=== PATIENT | male | born 1980 | race Caucasian/White ===

== ENCOUNTER 2023-03-17 19:20 | Emergency (ER) | payer MEDICAID ==
[~2023-03-17] VITALS: Ht 170.2 cm; Wt 68.0 kg
[2023-03-17] MEDS ORDERED: LIDOCAINE 1%-EPI 1:100,000 20 ML VIAL ONE (22:00)
[2023-03-17] MEDS ORDERED: LIDOCAINE 1%-EPI 1:200,000 SDV 10 ML VIAL IJ ONE (22:00)
[2023-03-17] MEDS ORDERED: TDAP [DIPH/PERTUSSIS/TET] 0.5 ML VIAL IM ONE ×2 (22:00→22:29)
[2023-03-17] MEDS ORDERED: IBUP800T54 PO (22:59)
[2023-03-17 23:03] VITALS: BP 112/80; TEMP 98.2; O2SAT 98
[2023-03-17] MEDS ORDERED: IBUPROFEN 400 MG TABLET ONE (23:13)
[2023-03-17] MEDS ORDERED: IBUPROFEN 400 MG TABLET PO ONE (23:30)
== END 2023-03-17 23:04 | disposition home or self-care (01) ==
LOC: ER 19:25
DX: S51.812A Laceration without foreign body of left forearm, initial encounter (principal); S40.212A Abrasion of left shoulder, initial encounter; V87.8XXA Person injured in other specified noncollision transport accidents involving motor vehicle (traffic), initial encounter; Y93.89 Activity, other specified; Y92.89 Other specified places as the place of occurrence of the external cause; Y99.8 Other external cause status
CPT/HCPCS: 12002; 73030; 73080; 73503; 90471; 90715; 99284; J3490; 73502

== ENCOUNTER 2023-03-27 10:15 | Emergency (ER) | payer MEDICAID ==
[~2023-03-27] VITALS: Ht 170.2 cm; Wt 71.2 kg
[~2023-03-27 10:15] MED LIST: IBUP800T54 PO
[2023-03-27 10:21] VITALS: BP 127/64; TEMP 98.4; O2SAT 100
== END 2023-03-27 10:41 | disposition home or self-care (01) ==
LOC: ER 10:17
DX: S51.812D Laceration without foreign body of left forearm, subsequent encounter (principal); Z79.899 Other long term (current) drug therapy; V98.8XXD Other specified transport accidents, subsequent encounter

== ENCOUNTER 2023-07-20 18:41 | Emergency (ER) | payer MEDICAID ==
[~2023-07-20] VITALS: Ht 170.2 cm; Wt 70.3 kg
[2023-07-20 18:53] VITALS: BP 136/86; TEMP 98.2; O2SAT 99
[2023-07-20] MEDS ORDERED: dexAMETHasone 1 MG TABLET PO ONE (19:30)
[2023-07-20] MEDS ORDERED: dexAMETHasone 4 MG TABLET ONE (19:36)
[2023-07-20] MEDS ORDERED: dexAMETHasone 1 MG TABLET ONE (19:36)
[2023-07-20] MEDS: dexAMETHasone 1 MG TABLET PO ONE (19:48)
[2023-07-20] MEDS ORDERED: DEXA6TAB6 PO (19:55)
== END 2023-07-20 20:05 | disposition home or self-care (01) ==
LOC: ER 18:47
DX: R21 Rash and other nonspecific skin eruption (principal); Z79.899 Other long term (current) drug therapy
CPT/HCPCS: 99283; J8540 ×2

== ENCOUNTER 2024-07-12 22:32 | Emergency (ER) | payer MEDICAID ==
[~2024-07-12] VITALS: Ht 175.3 cm; Wt 81.2 kg
[~2024-07-12 22:32] MED LIST changes: +DEXA6TAB6 PO
[2024-07-12 23:34] LABS: BASOPHILS % (AUTO) 0.6 % (0.0-2.0); EOSINOPHILS # (AUTO) 0.1 K/uL (0.0-0.7); EOSINOPHILS % (AUTO) 0.7 % (0.0-6.0); HEMATOCRIT 45 % (39-51); LYMPHOCYTES # (AUTO) 2.9 K/uL (0.8-4.8); LYMPHOCYTES % (AUTO) 35.8 % (20.0-44.0); MEAN CORPUSCULAR HEMOGLOBIN 28 PG (26.0-33.0); MEAN CORPUSCULAR HGB CONC 33 g/dl (31.0-36.0); MEAN CORPUSCULAR VOLUME 85 fL (80-96); MONOCYTES # (AUTO) 0.6 K/uL (0.1-1.30); MONOCYTES % (AUTO) 7.8 % (2.0-12.0); NEUTROPHILS # (AUTO) 4.4 K/uL (1.8-8.9); NEUTROPHILS % (AUTO) 55.1 % (43.0-81.0); PLATELET COUNT (AUTO) 272 K/uL (150-450); RED BLOOD CELL COUNT(AUTO) 5.35 MIL/uL (4.5-6.0); RED CELL DISTRIBUTION WIDTH 13.7 % (11.5-15.0)
[2024-07-12 23:46] LABS: ALANINE AMINOTRANSFERASE 47 U/L (12-78); ALBUMIN 4.5 g/dL (3.4-5.0); ALKALINE PHOSPHATASE 96 U/L (46-116); ASPARTATE AMINOTRANSFERASE 30 U/L (15-37); BILIRUBIN,DIRECT 0.1 mg/dL (0.0-0.2); BILIRUBIN,TOTAL 0.6 mg/dL (0.2-1.0); CALCIUM, SERUM 9.5 mg/dL (8.5-10.1); CARBON DIOXIDE 27 mmol/L (21-32); CHLORIDE 105 mmol/L (98-107); CREATININE 1.1 mg/dL (0.6-1.3); GLUCOSE 118 mg/dL (74-106); POTASSIUM 4.1 mmol/L (3.5-5.1); SODIUM SERUM 142 mmol/L (136-145); TOTAL PROTEIN, SERUM 7.9 g/dL (6.4-8.2); UREA NITROGEN, BLOOD 19 mg/dL (7-18)
[2024-07-12 23:49] LABS: INR 1.03 (0.91-1.10); PARTIAL THROMBOPLASTIN TIME 26.5 SEC (24.3-34.3); PROTHROMBIN TIME 10.9 SECS (9.2-11.1)
[2024-07-13] MEDS: IV NS 0.9% 1,000 ML BAG IV ONE (01:10)
[2024-07-13 03:20] VITALS: BP 130/78; TEMP 97.9; O2SAT 100
== END 2024-07-13 03:20 | disposition home or self-care (01) ==
LOC: ER 22:38
DX: R00.2 Palpitations (principal); R07.9 Chest pain, unspecified; R06.02 Shortness of breath
CPT/HCPCS: 99285; 96360; 71045; 93005; 85025; 80048; 80076; 85378; 36415 ×2; 84484 ×2; 85730; J7030